=== PATIENT | female | born 1965 | race American Indian/Alaskan Native ===

== ENCOUNTER 2021-01-06 10:03 | Outpatient (CLI) | payer OTHER ==
--- NOTE | 2021-01-06 12:53 | XRay Report ---
LUMBOSACRAL SPINE 3 VIEWS INDICATION: BACK PAIN. COMPARISON: None. IMPRESSION: Normal alignment. There is moderate facet arthropathy throughout the lumbar region. Mil d hypertrophic changes are suspected. Disc space height appears within normal limits. The SI joints are unremarkable. No acute osseous abnormality or bone lesion is identified. Signer Name: Sonny Salter Jr, MD Signed: 01/06/2021 12:49 PM Workstation Name: [id number]
== END 2021-01-06 10:04 | disposition home or self-care (01) ==
LOC: XRAY 10:03
PROVIDERS: ATTEND Internal Medicine
DX: M47.816 Spondylosis without myelopathy or radiculopathy, lumbar region (principal)
CPT/HCPCS: 72100